=== PATIENT | male | born 1970 | race Caucasian/White ===

== ENCOUNTER 2016-11-10 15:49 | Emergency (ER) | payer MEDICARE ==
[~2016-11-10] VITALS: Ht 180.3 cm; Wt 78.0 kg
[~2016-11-10 15:49] MED LIST: CLON.1 PO; CYCL-36 PO; IBUP600 PO; LISI-363 PO; PERC10TA27 PO; PERC5TAB12 PO; VENL-37 PO; XANA2TAB2 PO
[2016-11-10 16:07] VITALS: BP 180/114; PULSE 89; RESP 16; TEMP 98.8; O2SAT 96
[2016-11-10] MEDS ORDERED: SODIUM CHLORIDE 0.9% FLUSH 5 ML FLUSH IVF PRN (16:30)
[2016-11-10] MEDS ORDERED: ASPIRIN 81 MG CHEW TAB PO ONE (16:30)
[2016-11-10 16:42] LABS: AUTOMATED NEUTROPHIL # 4.1 TH/MM3 (1.8-7.7); BASOPHIL # 0.2 TH/MM3 (0-0.2); BASOPHIL % 2.5 % (0.0-2.0); EOSINOPHIL # 0.3 TH/MM3 (0-0.4); EOSINOPHIL % 4.8 % (0.0-4.0); HEMATOCRIT 42.8 % (39.0-51.0); HEMO FLAGS DIFF FINAL; LYMPH % 26.1 % (9.0-44.0); LYMPHOCYTE # 1.9 TH/MM3 (1.0-4.8); MEAN CELL VOLUME 94.7 FL (80.0-100.0); MEAN CORPUSCULAR HGB CONC 33.8 % (32.0-36.0); MONO % 9.1 % (0.0-8.0); NEUT % 57.5 % (16.0-70.0); PLATELET COUNT 196 TH/MM3 (150-450); RED BLOOD COUNT 4.52 MIL/MM3 (4.50-5.90); RED CELL DISTRIBUTION WIDTH 12.6 % (11.6-17.2); WHITE BLOOD COUNT 7.2 TH/MM3 (4.0-11.0)
[2016-11-10] MEDS ORDERED: LISINOPRIL 20 MG TAB PO ONE (16:45)
[2016-11-10] MEDS ORDERED: diphenhydrAMINE HCL 50 MG/ML VIAL IV PUSH ONE (16:45)
[2016-11-10] MEDS ORDERED: PROCHLORPERAZINE INJ 10 MG/2 ML VIAL IVS ONE (16:45)
[2016-11-10 16:52] LABS: CHLORIDE 105 MEQ/L (98-107); POTASSIUM 4.1 MEQ/L (3.5-5.1); SODIUM (NA) 140 MEQ/L (136-145)
[2016-11-10 16:57] LABS: ANION GAP 8 MEQ/L (5-15); APTT (PATIENT) 25.7 SEC (24.3-30.1); BICARBONATE 27.5 MEQ/L (21.0-32.0); BLOOD UREA NITROGEN 19 MG/DL (7-18); INTERNATIONAL NORMALIZED RATIO 0.9 RATIO; MAGNESIUM 2.4 MG/DL (1.5-2.5)
--- NOTE | 2016-11-10 16:59 | PD ---
HPI . Chest pain and headache Chief Complaint: Chest Pain Time Seen by Provider: 16:18 Travel History International Travel<30 days: No Contact w/Intl Traveler<30days: No Traveled to known affect area: No History of Present Illness HPI The patient actually has a pretty disjointed history of present illness. He comes in complaining with chest pain radiating to the left arm. He is also complaining with headache and blurred vision. He states that he's had pain in his left arm for probably 3 weeks now it is on the palmar side of the left wrist and radiates into the left fourth and fifth fingers. He describes a numbing sensation. States that it feels BURNING. He reports a positive previous similar history associated with cervical disc disease. He didn't give me a clear history as to when exactly his chest started hurting. He is complaining about headache as well. It seems that the headache started yesterday. Patient admits that he is out of all of his medications because he does not have a primary care provider. He has a history of hypertension and is supposed to be on lisinopril and clonidine. He states that we have been prescribing his antihypertensives. PFSH Past Medical History Hx Anticoagulant Therapy: No Arthritis: Yes Anxiety: Yes Depression: Yes Heart Rhythm Problems: No Cancer: No Cardiac Catheterization: No Cardiovascular Problems: Yes (HTN) High Cholesterol: No Congestive Heart Failure: No Diabetes: No Diminished Hearing: No Endocrine: No Gastrointestinal Disorders: No Genitourinary: No Hepatitis: No Hiatal Hernia: No Hypertension: Yes Immune Disorder: No Medical other: Yes (NECK BACK AND SHOULDER PROBLEMS DUE TO PRIOR ACCIDENT) Musculoskeletal: Yes (GENERALIZED ARTHRITIS PRIMARILY NECK, SHOULDER & HANDS BACK) Neurologic: Yes (HANDS & ARMS NEUROPATHY; BILATERAL LEGS NEUROPATHY ) Psychiatric: Yes (ANXIETY & DEPRESSION) Reproductive: No Respiratory: No Immunizations Current: Yes Myocardial Infarction: No Thyroid Disease: No Tetanus Vaccination: Unknown Past Surgical History Abdominal Surgery: No Body Medical Devices: 5 ANCHORS LEFT SHOULDER & C5-C7 FUSION Cardiac Surgery: No Coronary Artery Bypass Graft: No Ear Surgery: No Eye Surgery: No Genitourinary Surgery: No Joint Replacement: No Neurologic Surgery: Yes (CERVICAL FUSION X 2; ) Oral Surgery: No Pacemaker: No Thoracic Surgery: No Other Surgery: Yes (BACK - MARCH 24, 2013 AND March AND 2012) Family History Family Myocardial Infarction: No Social History Alcohol Use: No Tobacco Use: Yes (/2 ppd) Substance Use: No Allergies-Medications (Allergen,Severity, Reaction): Coded Allergies: Oxacillin (Verified Allergy, Severe, 11/10/16) Lortab (Verified Adverse Reaction, Severe, ITCH, 11/10/16) NOT ALLERGIC PER PATIENT. 02/21/13 Reported Meds & Prescriptions Reported Meds & Active Scripts Active Lisinopril 20 Mg Tab 20 Mg PO DAILY Review of Systems Except as stated in HPI: all other systems reviewed are Neg General / Constitutional: No: Fever, Chills Eyes: Positive: Blurred Vision HENT: Positive: Headaches, No: Lightheadedness Cardiovascular: Positive: Chest Pain or Discomfort Respiratory: No: Shortness of Breath Gastrointestinal: No: Nausea, Vomiting, Diarrhea Musculoskeletal: Positive: Pain Neurologic: Positive: Paresthesia Physical Exam Narrative GENERAL: This is a healthy-appearing 46-year-old male is not appear to be in any acute distress. SKIN: Warm and dry. HEAD: Atraumatic. Normocephalic. EYES: Pupils equal and round. ENT: No nasal bleeding or discharge. Mucous membranes pink and moist. NECK: Trachea midline. Diffuse tenderness to palpation of the posterior neck. CARDIOVASCULAR: Regular rate and rhythm. Heart sounds are normal. RESPIRATORY: No accessory muscle use. Lungs are clear with full air movement throughout. Chest wall is nontender to palpation. GASTROINTESTINAL: Abdomen soft, non-tender, nondistended. MUSCULOSKELETAL: No obvious deformities. No edema. NEUROLOGICAL: Awake and alert. No obvious cranial nerve deficits. Motor grossly within normal limits. Normal speech. Motor strength in all muscle groups of his upper extremities is full and equal. PSYCHIATRIC: Appropriate mood and affect; insight and judgment normal. Data Data Last Documented VS Vital Signs Date Time Temp Pulse Resp B/P Pulse Ox O2 Delivery O2 Flow Rate FiO2 11/10/16 19:16 78 18 160/107 98 Room Air 11/10/16 17:41 2 11/10/16 16:07 98.8 Orders Basic Metabolic Panel (Bmp) (11/10/16 16:23) Ckmb (Isoenzyme) Profile (11/10/16 16:23) Complete Blood Count With Diff (11/10/16 16:23) Magnesium (Mg) (11/10/16 16:23) Prothrombin Time / Inr (Pt) (11/10/16 16:23) Act Partial Throm Time (Ptt) (11/10/16 16:23) Troponin I (11/10/16 16:23) Chest, Single Ap (11/10/16 16:23) Ecg Monitoring (11/10/16 16:23) Bilateral Bp Monitoring (11/10/16 16:23) Iv Access Insert/Monitor (11/10/16 16:23) Oximetry (11/10/16 16:23) Oxygen Administration (11/10/16 16:23) Aspirin Chew (Aspirin Chew) (11/10/16 16:30) Sodium Chloride 0.9% Flush (Ns Flush) (11/10/16 16:30) Ct Brain W/O Iv Contrast(Rout) (11/10/16 16:42) Ct Cerv Spine W/O Contrast (11/10/16 16:42) Prochlorperazine Inj (Compazine Inj) (11/10/16 16:45) Diphenhydramine Inj (Benadryl Inj) (11/10/16 16:45) Lisinopril (Prinivil) (11/10/16 16:45) CKMB (11/10/16 16:06) CKMB% (11/10/16 16:06) Electrocardiogram (11/10/16 16:06) Labs Laboratory Tests Test 11/10/16 16:06 White Blood Count 7.2 TH/MM3 Red Blood Count 4.52 MIL/MM3 Hemoglobin 14.4 GM/DL Hematocrit 42.8 % Mean Corpuscular Volume 94.7 FL Mean Corpuscular Hemoglobin 32.0 PG Mean Corpuscular Hemoglobin 33.8 % Concent Red Cell Distribution Width 12.6 % Platelet Count 196 TH/MM3 Mean Platelet Volume 8.2 FL Neutrophils (%) (Auto) 57.5 % Lymphocytes (%) (Auto) 26.1 % Monocytes (%) (Auto) 9.1 % Eosinophils (%) (Auto) 4.8 % Basophils (%) (Auto) 2.5 % Neutrophils # (Auto) 4.1 TH/MM3 Lymphocytes # (Auto) 1.9 TH/MM3 Monocytes # (Auto) 0.7 TH/MM3 Eosinophils # (Auto) 0.3 TH/MM3 Basophils # (Auto) 0.2 TH/MM3 CBC Comment DIFF FINAL Differential Comment Prothrombin Time 10.0 SEC Prothromb Time International 0.9 RATIO Ratio Activated Partial 25.7 SEC Thromboplast Time Sodium Level 140 MEQ/L Potassium Level 4.1 MEQ/L Chloride Level 105 MEQ/L Carbon Dioxide Level 27.5 MEQ/L Anion Gap 8 MEQ/L Blood Urea Nitrogen 19 MG/DL Creatinine 0.95 MG/DL Estimat Glomerular Filtration 85 ML/MIN Rate Random Glucose 94 MG/DL Calcium Level 8.9 MG/DL Magnesium Level 2.4 MG/DL Total Creatine Kinase 101 U/L Creatine Kinase MB 1.3 NG/ML Troponin I LESS THAN 0.02 NG/ML MDM Medical Decision Making Medical Screen Exam Complete: Yes Emergency Medical Condition: Yes Medical Record Reviewed: Yes (patient was evaluated with a stress test in 2009 and it was negative.) Interpretation(s) EKG shows a normal sinus rhythm with no ST segment elevation or depression. Differential Diagnosis Differential diagnosis of chest pain includes but is not limited to musculoskeletal pain, pulmonary embolism, acute coronary syndrome, pneumonia, pleurisy Differential diagnosis of headache includes but is not limited to migraine, muscle contraction headache, brain tumor, brain bleed My differential diagnosis of paresthesias includes but is not limited to anxiety , radiculopathy, peripheral neuropathy, peripheral vascular disease, compartment syndrome Narrative Course Patient presents for evaluation of several problems that seem to be unrelated. He has a headache. He has paresthesias in his left lower arm. He has chest pain. Last Impressions Chest X-Ray 11/10/16 1623 Signed Impressions: Service Date/Time: Thursday, November 10, 2016 16:46 - CONCLUSION: No acute disease. Brett Heath MD The chest x-ray was independently viewed by me. CBC & BMP Diagram 11/10/16 16:06 Cardiac enzymes are negative. Head CT is negative. CT C-spine: 1. Status post fusion at the C5 through C7 disc spaces. 2. Mild disc bulge at the C3-C4 level and mild to moderate disc bulge or wide disc protrusion at the C4-C5 level causing a moderate impression on the thecal sac. I will refill his lisinopril. I am not comfortable refilling his clonidine as he is noncompliant with it. I feel that the risk of rebound hypertension when he stops taking the clonidine outweighs any possible benefits of clonidine. Diagnosis Primary Impression: Chest pain Qualified Code: R07.9 - Chest pain, unspecified type Additional Impressions: Headache Qualified Code: R51 - Acute nonintractable headache, unspecified headache type Arm paresthesia, left Med/Other Pt SpecificInfo: Prescription(s) given Scripts Lisinopril 20 Mg Tab20 Mg PO DAILY #30 TAB Ref 0 Prov:Clara Edwards MD 11/10/16 Disposition: 01 DISCHARGE HOME Condition: Stable Clara Edwards MD Nov 10, 2016 16:59
[2016-11-10 17:00] LABS: GLOMERULAR FILTRATION RATE 85 ML/MIN (>89)
--- NOTE | 2016-11-10 17:00 | RADHPO ---
EXAM DATE/TIME: 11/10/2016 16:46 [facility] COMPARISON: CHEST SINGLE AP, June 18, 2016, 23:27. INDICATIONS : Chest pain on and off for several days. MEDICAL HISTORY : Hypertension. SURGICAL HISTORY : Discectomy, cervical. ENCOUNTER: Initial ACUITY: 3 days PAIN SCORE: 9/10 LOCATION: Bilateral chest FINDINGS: A single view of the chest demonstrates the lungs to be symmetrically aerated without evidence of mas s, infiltrate or effusion. The cardiomediastinal contours are unremarkable. Osseous structures are intact. The patient is status post lower cervical fusion. There are overlying electrocardiogram leads and oxygen tubing. CONCLUSION: No acute disease. Brett Heath MD on November 10, 2016 at 16:57 Board Certified Radiologist. This report was verified electronically.
[2016-11-10 17:03] LABS: CREATINE KINASE 101 U/L (39-308)
[2016-11-10 17:16] LABS: CKMB 1.3 NG/ML (0.5-3.6)
[2016-11-10 17:41] VITALS: BP 161/100; PULSE 79; RESP 16; O2SAT 99
--- NOTE | 2016-11-10 18:25 | RADHPO ---
EXAM DATE/TIME: 11/10/2016 17:48 [facility] COMPARISON: CT BRAIN W/O CONTRAST, June 18, 2016, 23:29. INDICATIONS : Cephalgia. RADIATION DOSE: 58.89 CTDIvol (mGy) MEDICAL HISTORY : Hypertension. SURGICAL HISTORY : Fusion, cervical. ENCOUNTER: Initial ACUITY: 1 day PAIN SCALE: 9/10 LOCATION: cranial TECHNIQUE: Multiple contiguous axial images were obtained of the head. Using automated exposure control and adj ustment of the mA and/or kV according to patient size, radiation dose was kept as low as reasonably a chievable to obtain optimal diagnostic quality images. FINDINGS: CEREBRUM: The ventricles are normal for age. No evidence of midline shift, mass lesion, hemorrhage or acute in farction. No extra-axial fluid collections are seen. POSTERIOR FOSSA: The cerebellum and brainstem are intact. The 4th ventricle is midline. The cerebellopontine angle i s unremarkable. EXTRACRANIAL: The visualized portion of the orbits is intact. SKULL: The calvaria is intact. No evidence of skull fracture. CONCLUSION: No acute disease. Logan Dubose MD on November 10, 2016 at 18:21 Board Certified Radiologist. This report was verified electronically.
--- NOTE | 2016-11-10 18:55 | RADHPO ---
EXAM DATE/TIME: 11/10/2016 17:48 [facility] COMPARISON: CT CERVICAL SPINE W/O CONTRAST, June 18, 2016, 23:29. INDICATIONS : Left upper extremity numbness and pain. Degenerative disc disease. RADIATION DOSE: 26.09 CTDIvol (mGy) MEDICAL HISTORY : Hypertension. SURGICAL HISTORY : Fusion, cervical. ENCOUNTER: Initial ACUITY: 3 weeks PAIN SCALE: 9/10 LOCATION: Left upper extremity TECHNIQUE: Volumetric scanning of the cervical spine was performed. Multiplanar reconstructions i n the sagittal, coronal and oblique axial planes were performed. Using automated exposure control a nd adjustment of the mA and/or kV according to patient size, radiation dose was kept as low as reason ably achievable to obtain optimal diagnostic quality images. FINDINGS: The craniovertebral junction is intact. The C1 ring is intact. The C1-C2 articulation and dens are intact. The patient has an anterior cervical fusion plate extending from C5 through C7 with stabilization devices at the C5-C6 and C6-C7 disc levels. The cervical vertebral bodies are nor mal in height and grossly normally aligned. C2-C3: The disc space intact. There is no spinal stenosis and the neural foramina are normal. There is mild right facet hypertrophy. C3-C4: Disc demonstrates decreased height. There appears to be minimal bulging causing only a mild impression on the thecal sac. There continues to be CSF around the cord. There is mild uncovertebra l and facet hypertrophy. There neural foramina are grossly normal. C4-C5: There is a mild to moderate impression on the anterior aspect of the thecal sac secondary to either a wide disc protrusion or disc bulge. There appears to be little CSF around the cord at this level. The neural foramina are grossly intact. C5-C6: The patient is status post fusion at this level. Significant impression on the thecal sac is not seen. The neural foramina are normal. There is mild facet hypertrophy. C6-C7: The patient is status post fusion. A significant impression on the thecal sac is not seen. The neural foramina are normal. C7-T1: The bony spinal canal is normal in size. No evidence of disc bulge or herniation. The neura l foramina are bilaterally patent. CONCLUSION: 1. Status post fusion at the C5 through C7 disc spaces. 2. Mild disc bulge at the C3-C4 level and mild to moderate disc bulge or wide disc protrusion at the C4-C5 level causing a moderate impression on the thecal sac. Logan Dubose MD on November 10, 2016 at 18:30 Board Certified Radiologist. This report was verified electronically.
[2016-11-10 19:16] VITALS: BP 160/107; PULSE 78; RESP 18; O2SAT 98
[2016-11-10] MEDS ORDERED: LISI-515 PO (19:33)
[2016-11-10 19:46] VITALS: BP_SYST 167; BP_SYST 169; BP_DIAS 111; BP_DIAS 97; PULSE 78; RESP 18; O2SAT 99
[2016-11-10 20:36] VITALS: BP 161/97
--- NOTE | 2016-11-11 23:03 | EKG ---
Date Performed: 11/10/2016 Time Performed: 16:06:30 PTAGE: 46 years EKG: Sinus rhythm Normal ECG PREVIOUS TRACING : 06/18/2016 22.42 DOCTOR: Stacy Rodriguez Interpretating Date/Time 11/11/2016 22:58:38
[2016-11-26] MEDS ORDERED: ULTR50TA5 PO (16:11)
[2016-11-26] MEDS ORDERED: ZANA4CAP PO (16:12)
[2016-11-27] MEDS ORDERED: CYCL7.5T33 PO (13:57)
[2016-12-01] MEDS ORDERED: CYCL1TAB29 PO (14:41)
== END 2016-11-10 20:49 | disposition home or self-care (01) ==
LOC: PHED 15:49
DX: R07.9 Chest pain, unspecified (principal); R51 Headache; R20.2 Paresthesia of skin; I10 Essential (primary) hypertension; F17.210 Nicotine dependence, cigarettes, uncomplicated; Z79.899 Other long term (current) drug therapy
CPT/HCPCS: 70450; 71010; 72125; 80048; 82550; 82552; 83735; 84484; 85025; 85610; 85730; 93005; 96374; 96375; 99285; J0780; J1200

== ENCOUNTER 2017-05-09 06:35 | Emergency (ER) | payer MEDICARE ==
[~2017-05-09] VITALS: Ht 177.8 cm; Wt 70.9 kg
[~2017-05-09 06:35] MED LIST changes: -CLON.1 PO; -CYCL-36 PO; +CYCL1TAB29 PO; -IBUP600 PO; -LISI-363 PO; +LISI-515 PO; -PERC10TA27 PO; -PERC5TAB12 PO; +ULTR50TA5 PO; -VENL-37 PO; -XANA2TAB2 PO
[2017-05-09 06:47] VITALS: BP 187/119; PULSE 96; RESP 18; TEMP 97.6; O2SAT 96
[2017-05-09 07:14] VITALS: BP 177/118; PULSE 84; RESP 16; O2SAT 98
--- NOTE | 2017-05-09 07:27 | PD ---
HPI Chief Complaint: Fall Time Seen by Provider: 07:22 Travel History International Travel<30 days: No Contact w/Intl Traveler<30days: No Traveled to known affect area: No History of Present Illness HPI This patient had a fall at 4:30 AM. Duration 3 hours. Severity of symptoms is moderate. He was feeling dizzy and lightheaded and was walking down stairs and lost his balance and fell. He struck his head and does complain of headache. No LOC. He has chronic daily neck pain and had 2 prior cervical fusions. He thinks he jammed his neck and complains of pain there. He has no muscle weakness or sensory loss. No chest pain or syncope. No alleviating factors. PFSH Past Medical History Hx Anticoagulant Therapy: No Arthritis: Yes Anxiety: Yes Depression: Yes Heart Rhythm Problems: No Cancer: No Cardiac Catheterization: No Cardiovascular Problems: Yes (HTN) High Cholesterol: No Congestive Heart Failure: No Diabetes: No Diminished Hearing: No Endocrine: No Gastrointestinal Disorders: No Genitourinary: No Hepatitis: No Hiatal Hernia: No Hypertension: Yes Immune Disorder: No Musculoskeletal: Yes (GENERALIZED ARTHRITIS PRIMARILY NECK, SHOULDER & HANDS BACK) Neurologic: Yes (HANDS & ARMS NEUROPATHY; BILATERAL LEGS NEUROPATHY ) Psychiatric: Yes (ANXIETY & DEPRESSION) Reproductive: No Respiratory: No Immunizations Current: Yes Myocardial Infarction: No Thyroid Disease: No Influenza Vaccination: No Past Surgical History Abdominal Surgery: No Body Medical Devices: 5 ANCHORS LEFT SHOULDER & C5-C7 FUSION Cardiac Surgery: No Coronary Artery Bypass Graft: No Ear Surgery: No Eye Surgery: No Genitourinary Surgery: No Joint Replacement: No Neurologic Surgery: Yes (CERVICAL FUSION X 2; ) Oral Surgery: No Pacemaker: No Thoracic Surgery: No Other Surgery: Yes (BACK - MARCH 24, 2013 AND March AND 2012) Social History Alcohol Use: No Tobacco Use: Yes (/2 ppd) Substance Use: No Allergies-Medications (Allergen,Severity, Reaction): Coded Allergies: Oxacillin (Verified Allergy, Severe, 11/26/16) Reported Meds & Prescriptions Reported Meds & Active Scripts Active Tylenol-Codeine #3 (Acetaminophen-Codeine) 300-30 mg Tab 1 Tab PO Q6HR PRN Lisinopril 20 Mg Tab 20 Mg PO DAILY Review of Systems General / Constitutional: No: Fever Eyes: No: Visual changes HENT: Positive: Headaches, Lightheadedness, Neck Pain Cardiovascular: No: Chest Pain or Discomfort Respiratory: No: Shortness of Breath Gastrointestinal: No: Abdominal Pain Genitourinary: No: Dysuria Musculoskeletal: No: Pain Skin: No Rash Neurologic: Positive: Headache, No: Weakness Psychiatric: No: Depression Endocrine: No: Polydipsia Hematologic/Lymphatic: No: Easy Bruising Physical Exam Narrative GENERAL: Well-nourished, well-developed patient in no apparent distress. SKIN: Focused skin assessment reveals no rash and nodules. Skin is Warm and dry. HEAD: Atraumatic. Normocephalic. EYES: Pupils equal and round. No scleral icterus. No injection or drainage. ENT: No nasal bleeding or discharge. Mucous membranes pink and moist. NECK: Trachea midline. No JVD. No midline tenderness. No bruising or swelling CARDIOVASCULAR: Regular rate and rhythm. No murmur appreciated. RESPIRATORY: No accessory muscle use. Clear to auscultation. Breath sounds equal bilaterally. GASTROINTESTINAL: Abdomen soft, non-tender, nondistended. Hepatic and splenic margins not palpable. MUSCULOSKELETAL: No obvious deformities. No clubbing. No cyanosis. No edema. NEUROLOGICAL: Awake and alert. No obvious cranial nerve deficits. Motor grossly within normal limits. Normal speech. PSYCHIATRIC: Appropriate mood and affect; insight and judgment normal. Data Data Last Documented VS Vital Signs Date Time Temp Pulse Resp B/P Pulse Ox O2 Delivery O2 Flow Rate FiO2 05/09/17 08:47 74 16 144/92 98 05/09/17 08:12 Room Air 05/09/17 06:47 97.6 Orders Iv Access Insert/Monitor (05/09/17 07:22) Complete Blood Count With Diff (05/09/17 07:22) Basic Metabolic Panel (Bmp) (05/09/17 07:22) [employer] Operator / Telemetry [id number] (05/09/17 07:22) Ct Brain W/O Iv Contrast(Rout) (05/09/17 ) Ct Cerv Spine W/O Contrast (05/09/17 ) Clonidine (Catapres) (05/09/17 07:30) Potassium Chloride Eff (K-Lyte Cl Eff) (05/09/17 08:45) Labs Laboratory Tests Test 05/09/17 07:30 White Blood Count 9.6 TH/MM3 Red Blood Count 4.50 MIL/MM3 Hemoglobin 14.3 GM/DL Hematocrit 41.8 % Mean Corpuscular Volume 92.8 FL Mean Corpuscular Hemoglobin 31.8 PG Mean Corpuscular Hemoglobin 34.2 % Concent Red Cell Distribution Width 12.7 % Platelet Count 196 TH/MM3 Mean Platelet Volume 7.9 FL Neutrophils (%) (Auto) 61.5 % Lymphocytes (%) (Auto) 26.0 % Monocytes (%) (Auto) 6.3 % Eosinophils (%) (Auto) 5.7 % Basophils (%) (Auto) 0.5 % Neutrophils # (Auto) 5.9 TH/MM3 Lymphocytes # (Auto) 2.5 TH/MM3 Monocytes # (Auto) 0.6 TH/MM3 Eosinophils # (Auto) 0.6 TH/MM3 Basophils # (Auto) 0.0 TH/MM3 CBC Comment DIFF FINAL Differential Comment Sodium Level 135 MEQ/L Potassium Level 3.2 MEQ/L Chloride Level 99 MEQ/L Carbon Dioxide Level 29.2 MEQ/L Anion Gap 7 MEQ/L Blood Urea Nitrogen 11 MG/DL Creatinine 0.82 MG/DL Estimat Glomerular Filtration 100 ML/MIN Rate Random Glucose 104 MG/DL Calcium Level 8.9 MG/DL MDM Medical Decision Making Medical Screen Exam Complete: Yes Emergency Medical Condition: Yes Medical Record Reviewed: Yes Differential Diagnosis Intracranial hemorrhage, C-spine fracture, cardiac arrhythmia Narrative Course I have reviewed the patient's electronic medical record. Has chronic daily pain , been off pain management for one year IV placed CBC is normal Metabolic profile shows hypokalemia which is replaced orally Brain CT is negative Cervical spine CT shows no traumatic findings Extended cardiac monitoring reveals sinus rhythm at 90 without ectopy Patient is neurologically intact No objective findings of injury on exam Has accelerated hypertension with diastolic of 118. Dose of clonidine given and will be reassessed Blood pressures better on reassessment I wrote him a refill of his lisinopril for one month and some Tylenol with Codeine for pain The patient was advised to follow up with their physician and return if they worsen. Diagnosis Primary Impression: Head injury due to trauma Qualified Code: S09.90XA - Traumatic injury of head, initial encounter Additional Impressions: Lightheadedness Hypokalemia Accelerated hypertension Additional Instructions: The patient was advised to follow up with their physician and return if they worsen. The patient was warned about potential sedation for the medications they will receive on prescription. Check and record blood pressure daily Med/Other Pt SpecificInfo: Prescription(s) given Scripts Acetaminophen-Codeine (Tylenol-Codeine #3)300-30 mg Tab1 Tab PO Q6HR PRN (PAIN) #15 TAB Ref 0 Prov:Johnny Garrison MD 05/09/17 Lisinopril 20 Mg Tab20 Mg PO DAILY #30 TAB Ref 0 Prov:Johnny Garrison MD 05/09/17 Disposition: 01 DISCHARGE HOME Condition: Stable Johnny Garrison MD May 09, 2017 07:27
[2017-05-09] MEDS ORDERED: cloNIDine HCL 0.2 MG TAB PO ONE (07:30)
[2017-05-09 07:38] LABS: AUTOMATED NEUTROPHIL # 5.9 TH/MM3 (1.8-7.7); BASOPHIL % 0.5 % (0.0-2.0); EOSINOPHIL # 0.6 TH/MM3 (0-0.4); EOSINOPHIL % 5.7 % (0.0-4.0); HEMATOCRIT 41.8 % (39.0-51.0); HEMO FLAGS DIFF FINAL; LYMPHOCYTE # 2.5 TH/MM3 (1.0-4.8); MEAN CELL VOLUME 92.8 FL (80.0-100.0); MEAN CORPUSCULAR HEMOGLOBIN 31.8 PG (27.0-34.0); MEAN CORPUSCULAR HGB CONC 34.2 % (32.0-36.0); MONO % 6.3 % (0.0-8.0); NEUT % 61.5 % (16.0-70.0); PLATELET COUNT 196 TH/MM3 (150-450); RED CELL DISTRIBUTION WIDTH 12.7 % (11.6-17.2); WHITE BLOOD COUNT 9.6 TH/MM3 (4.0-11.0)
[2017-05-09 07:48] LABS: POTASSIUM 3.2 MEQ/L (3.5-5.1)
[2017-05-09 07:51] LABS: BICARBONATE 29.2 MEQ/L (21.0-32.0)
--- NOTE | 2017-05-09 08:00 | RADRPT ---
EXAM DATE/TIME: 05/09/2017 07:47 [facility] COMPARISON: CT BRAIN W/O CONTRAST, November 10, 2016, 17:48. INDICATIONS : Head trauma after fall.. RADIATION DOSE: 59.53 CTDIvol (mGy) MEDICAL HISTORY : Hypertension. SURGICAL HISTORY : Fusion, cervical. ENCOUNTER: Initial ACUITY: 1 day PAIN SCALE: 4/10 LOCATION: cranial TECHNIQUE: Multiple contiguous axial images were obtained of the head. Using automated exposure control and adj ustment of the mA and/or kV according to patient size, radiation dose was kept as low as reasonably a chievable to obtain optimal diagnostic quality images. DICOM format image data is available electro nically for review and comparison. FINDINGS: CEREBRUM: The ventricles are normal for age. No evidence of midline shift, mass lesion, hemorrhage or acute in farction. No extra-axial fluid collections are seen. POSTERIOR FOSSA: The cerebellum and brainstem are intact. The 4th ventricle is midline. The cerebellopontine angle i s unremarkable. EXTRACRANIAL: The visualized portion of the orbits is intact. SKULL: The calvaria is intact. No evidence of skull fracture. CONCLUSION: Negative noncontrast trauma CT. Brett Heath MD on May 09, 2017 at 7:57 Board Certified Radiologist. This report was verified electronically.
--- NOTE | 2017-05-09 08:06 | RADRPT ---
EXAM DATE/TIME: 05/09/2017 07:47 [facility] COMPARISON: CT CERVICAL SPINE W/O CONTRAST, November 10, 2016, 17:48. INDICATIONS : Fell down stairs this morning. Neck pain. RADIATION DOSE: 24.52 CTDIvol (mGy) MEDICAL HISTORY : Hypertension. SURGICAL HISTORY : Discectomy, cervical. ENCOUNTER: Initial ACUITY: 1 day PAIN SCALE: 5/10 LOCATION: neck TECHNIQUE: Volumetric scanning of the cervical spine was performed. Multiplanar reconstructions i n the sagittal, coronal and oblique axial planes were performed. Using automated exposure control a nd adjustment of the mA and/or kV according to patient size, radiation dose was kept as low as reason ably achievable to obtain optimal diagnostic quality images. DICOM format image data is available e lectronically for review and comparison. FINDINGS: The sagittal reconstructions demonstrate normal alignment and normal prevertebral soft tissues. The d ens is intact and there is a normal atlantoaxial relationship. The patient is again noted to be statu s post anterior fusion C5-C7 level with anterior screw-plate fixation device. Bone graft material and metallic markers are noted in the interspaces and this appears unchanged. Mild degenerative changes are present at the C3-4 level with disc space narrowing and hypertrophic change. There are degenerati ve changes involving atlantoaxial joint. The axial images demonstrate that the vertebral bodies and posterior elements are intact. The soft ti ssues are within normal limits. There is no evidence of acute fracture or malalignment. The fusion foy rdware is intact in appearance. CONCLUSION: Negative trauma CT. Brett Heath MD on May 09, 2017 at 8:02 Board Certified Radiologist. This report was verified electronically.
[2017-05-09 08:12] VITALS: BP 175/108; PULSE 80; RESP 16; O2SAT 98
[2017-05-09] MEDS ORDERED: POTASSIUM CHLORIDE 25 MEQ EFFERVESCENT TAB PO ONE (08:45)
[2017-05-09 08:47] VITALS: BP 144/92; PULSE 74; RESP 16; O2SAT 98
[2017-05-09] MEDS ORDERED: TYLETAB34 PO (09:10)
[2017-05-09] MEDS ORDERED: LISI-515 PO (09:10)
== END 2017-05-09 09:26 | disposition home or self-care (01) ==
LOC: PHED 06:35
DX: S09.90XA Unspecified injury of head, initial encounter (principal); R42 Dizziness and giddiness; E87.6 Hypokalemia; I10 Essential (primary) hypertension; M54.2 Cervicalgia; F17.200 Nicotine dependence, unspecified, uncomplicated; W10.9XXA Fall (on) (from) unspecified stairs and steps, initial encounter; Z87.39 Personal history of other diseases of the musculoskeletal system and connective tissue; Z86.59 Personal history of other mental and behavioral disorders; Z86.79 Personal history of other diseases of the circulatory system; Z86.69 Personal history of other diseases of the nervous system and sense organs
CPT/HCPCS: 70450; 72125; 80048; 85025; 99285